=== PATIENT | female | born 1935 | race Native Hawaiian/Other Pacific Islander ===

== ENCOUNTER → 2019-10-28 | Outpatient (CLI) | payer MEDICARE ==
[2019-10-28 12:09] LABS: HGB 15.7 gm/dL (11.4-16.0); Hypochromasia Slight; MCH 30.6 pg (25.0-35.0); MCHC 32.8 g/dL (31.0-37.0); MCV 93.5 fL (80.0-100.0); Mean Platelet Volume 9.1; Platelet Count 192 k/uL (150-450); RBC 5.13 m/uL (3.80-5.40); RDW 12.6 % (11.5-15.5); WBC 6.2 k/uL (3.8-10.6)
[2019-10-28 12:14] LABS: African American GFR (CKD) >90 (>60 ml/min/1.73 sqM); Anion Gap 10 mmol/L; Blood Urea Nitrogen 19 mg/dL (7-17); Carbon Dioxide 24 mmol/L (22-30); Chloride 106 mmol/L (98-107); Non-African American GFR(CKD) 79 (>60 ml/min/1.73 sqM); Potassium 4.6 mmol/L (3.5-5.1); Sodium 140 mmol/L (137-145)
== END | disposition home or self-care (01) ==
LOC: LABPAT 11:10
PROVIDERS: ATTEND Internal Medicine Interventional Cardiology
DX: Z01.818 Encounter for other preprocedural examination (principal); I20.9 Angina pectoris, unspecified
CPT/HCPCS: 36415; 80051; 82565; 84520; 85027

== ENCOUNTER 2019-11-04 06:32 | Day surgery (SDC) | payer MEDICARE ==
[2019-11-03 09:12] VITALS: BMI 29.5
[~2019-11-04 06:32] MED LIST: ALPRAZolam 0.25 MG TAB PO PRN; ALPRAZolam 0.5 MG TAB PO PRN; ASPIRIN 325 MG TAB PO STA; ATORVASTATIN 80 MG TAB PO STA; NITROGLYCERIN SL TABS 0.4 MG TAB SUBLINGUAL PRN; SODIUM CHLORIDE 0.9% 1,000 ML in EMPTY BAG 1 BAG IV ONE
[2019-11-04 07:09] VITALS: RESP 16; TEMP 97.7
[2019-11-04] MEDS ORDERED: SODIUM CHLORIDE 0.9% 1,000 ML IV ONE (07:12)
[2019-11-04 07:16] LABS: Basophils % (A) 1 %; Eosinophils # (A) 0.2 k/uL (0-0.7); Eosinophils % (A) 4 %; HCT 48.7 % (34.0-46.0); HGB 15.6 gm/dL (11.4-16.0); Lymphocytes # (A) 1.3 k/uL (1.0-4.8); Lymphocytes % (A) 24 %; MCH 29.3 pg (25.0-35.0); MCHC 32.1 g/dL (31.0-37.0); MCV 91.4 fL (80.0-100.0); Mean Platelet Volume 8.6; Monocytes # (A) 0.3 k/uL (0-1.0); Monocytes % (A) 6 %; Neutrophils # (A) 3.4 k/uL (1.3-7.7); Neutrophils % (A) 64 %; Platelet Count 206 k/uL (150-450); RBC 5.33 m/uL (3.80-5.40); RDW 12.7 % (11.5-15.5); WBC 5.4 k/uL (3.8-10.6)
[2019-11-04] MEDS ORDERED: fentaNYL (PF) 50 MCG/ML 2 ML AMP ONE (07:22)
[2019-11-04] MEDS ORDERED: LIDOCAINE 1% INJ 10MG/ML (20 ML MDV) ONE (07:22)
[2019-11-04] MEDS ORDERED: VERAPAMIL 2.5 MG/ML 2 ML AMP ONE (07:22)
[2019-11-04] MEDS ORDERED: HEPARIN SODIUM 1,000 UN/ML (10ML VL) ONE (07:22)
[2019-11-04 07:23] LABS: Calcium 9.9 mg/dL (8.4-10.2); Potassium 4.2 mmol/L (3.5-5.1)
[2019-11-04] MEDS ORDERED: fentaNYL (PF) 50 MCG/ML 2 ML AMP IV ONE (07:35)
[2019-11-04] MEDS ORDERED: VERAPAMIL SYRINGE (5 MG/10 ML) INTRAARTER ONE (07:42)
[2019-11-04] MEDS ORDERED: IOPAMIDOL-370 100ML BTL INJ ONE (07:50)
[2019-11-04] MEDS ORDERED: RX INFO: IV CONTRAST WAS GIVEN 1 EACH MISC MISCELLANE PRN (08:04)
[2019-11-04] MEDS ORDERED: SODIUM CHLORIDE 0.9% 1,000 ML IV SCH (08:15)
--- NOTE | 2019-11-04 13:37 | CC ---
CARDIAC CATHETERIZATION REPORT Mrs. Waite is an 84-year-old female with a history of hypertension, hyperlipidemia, who has been complaining of progressive symptoms of dyspnea on exertion as well as chest discomfort. She underwent a myocardial perfusion imaging in July that showed evidence of inducible ischemia. She was treated medically, but has persisted in having progressive symptoms. In view of that, recommendation made regarding cardiac catheterization. The procedures, risks, and complications were discussed with the patient who is unremarkable full understanding and agreement. PROCEDURE DETAILS: Patient was brought to [facility] in a fasting state after receiving fentanyl and Benadryl and achieving moderate conscious sedated state. Using Xylocaine anesthesia Seldinger technique, a 6-Tamazight sheath was introduced in the right radial artery. Selective right and left coronary angiography performed using 5-Tamazight 3 and half bend right and left Surendra catheter. Multiple views of the coronary artery including hemiaxial views obtained, the right Surendra catheter was used to cross the aortic valve and left ventricular end-diastolic pressure was calculated. Following that, catheter and sheath were removed. Hemostasis was obtained with deployment of a TR band. There was no immediate complication. Patient was returned to her room in stable condition. Of note, the patient received 4500 units of intravenous heparin as well as intra- arterial verapamil. FINDINGS: FLUOROSCOPY: There was calcification involving the left anterior descending artery as well as the right coronary artery. LEFT MAIN: This is a large-sized vessel bifurcating into left circumflex, left anterior descending coronary artery. Left main coronary artery has no evidence of high- grade stenosis. LEFT ANTERIOR DESCENDING ARTERY: This is a large-sized vessel, tapers down distal third, giving rise to 2 diagonal branches. The first one is large in caliber. Prior to the takeoff of the first diagonal branch, there is a 10% to 20% plaque. There is another plaque of 20% to 30% following the diagonal branch takeoff. The rest of the vessel has no evidence of high-grade stenosis. LEFT CIRCUMFLEX: This is a nondominant moderately-sized vessel giving rise to 2 obtuse marginal branches. The left circumflex as well as branches have no evidence of obstructive coronary artery disease. RIGHT CORONARY ARTERY: This is a large dominant vessel, calcified, bifurcating distally into PDA and posterolateral segment and branches. The right coronary artery in the proximal segment has a 10-20% plaque without any evidence of high-grade stenosis. LEFT VENTRICULOGRAM: Left ventriculogram was not performed. HEMODYNAMICS: There was no gradient across the aortic valve. The left ventricular end-diastolic pressure was 10-12 mmHg. CONCLUSION: 1. Chronic calcified coronary arteries. 2. 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 RECOMMENDATION: In view of findings and anatomy, I recommend continue medical therapy with aggressive coronary risk modifications that have been initiated. Those findings and recommendation were discussed with the patient and her family and they are in full understanding and agreement. Duration of procedure is 13 minutes. MMBASILIOL / IJN: [id number] /
[2019-11-04 18:26] VITALS: BP 142/60; PULSE 62
[2019-11-04] MEDS ORDERED: NON FORMULARY DRUG (Lovastatin 40 MG) PO SCH (21:00)
[2019-11-04] MEDS ORDERED: NON FORMULARY DRUG (Vit C/E/Zn/Coppr/Lutein/Zeaxan [Preservision Areds 2 Softgel] 1 EACH) PO SCH (21:00)
[2019-11-04] MEDS ORDERED: VERAPAMIL SR 180 MG TABLET.ER PO SCH (21:00)
[2019-11-05] MEDS ORDERED: FLAXSEED OIL 1000 MG PO SCH (09:00)
[2019-11-05] MEDS ORDERED: MULTIVITAMINS, THERA 1 EACH TAB PO SCH (09:00)
[2019-11-05] MEDS ORDERED: ASPIRIN 81 MG PO SCH (09:00)
[2019-11-05] MEDS ORDERED: CALCIUM CARBONATE PO SCH (09:00)
[2019-11-05] MEDS ORDERED: [UNRECOGNIZED DRUG - OTHER] PO SCH (09:00)
[2019-11-05] MEDS ORDERED: VITAMIN D3 PO SCH (09:00)
[2019-11-05] MEDS ORDERED: LOSARTAN 25 MG TAB PO SCH (09:00)
[2019-11-05] MEDS ORDERED: ISOSORBIDE MONONITRATE ER 30 MG TAB.ER.24H PO SCH (09:00)
== END 2019-11-04 13:20 | disposition home or self-care (01) ==
LOC: CATHCVL 06:32
PROVIDERS: ATTEND Internal Medicine Interventional Cardiology
DX: I25.10 Atherosclerotic heart disease of native coronary artery without angina pectoris (principal); I25.84 Coronary atherosclerosis due to calcified coronary lesion; I10 Essential (primary) hypertension; Z87.891 Personal history of nicotine dependence; E78.00 Pure hypercholesterolemia, unspecified; E78.2 Mixed hyperlipidemia; K21.9 Gastro-esophageal reflux disease without esophagitis; Z82.49 Family history of ischemic heart disease and other diseases of the circulatory system; Z90.710 Acquired absence of both cervix and uterus; Z98.49 Cataract extraction status, unspecified eye; Z90.49 Acquired absence of other specified parts of digestive tract; Z96.659 Presence of unspecified artificial knee joint; Z79.82 Long term (current) use of aspirin; Z79.899 Other long term (current) drug therapy; Z88.1 Allergy status to other antibiotic agents; Z88.5 Allergy status to narcotic agent; Z88.0 Allergy status to penicillin
CPT/HCPCS: 93458; 80048; 85025; C1769; C1894; J3010; J1644; Q9967

== ENCOUNTER 2020-08-01 16:02 | Inpatient (IN) | payer MEDICARE ==
[2020-08-01] MEDS ORDERED: NALOXONE 0.4 MG/ML 1 ML VIAL IV PRN (18:00)
--- NOTE | 2020-08-01 18:00 | ED ---
Weakness HPI - General Chief complaint: Weakness Stated complaint: Covid Time Seen by Provider: 08/01/20 16:10 Source: EMS Mode of arrival: EMS Limitations: no limitations - History of Present Illness Initial comments: Patient is an 78-year-old female who presented to [facility] for generalized weakness, nausea, vomiting, cough for the past 7 days. She did have contact with known Covid patient 11 days ago. She was evaluated at their facility and it was found that the patient was hypoxic without oxygen supplementation. She desatted down to 86% with ambulation. Maintained a room sat of 90% when not ambulating and 92% on 2 L. [facility] could not accommodate the patient therefore recommended that she be transferred to our facility. She was given a dose of Decadron before transfer. She denies any nausea or vomiting. No chest pain. Denies any abdominal pain. No other alleviating, Percepting or modifying factors - Related Data Home Medications Medication Instructions Recorded Confirmed Aspirin 81 mg PO DAILY 11/03/19 08/01/20 Calcium Carbonate/Vitamin D3 1 tab PO DAILY 11/03/19 08/01/20 [Calcium 600-D3 20Mcg(800 Unit)] Flaxseed Oil 1,000 mg PO DAILY 11/03/19 08/01/20 Isosorbide Mononitrate [Isosorbide 30 mg PO DAILY 11/03/19 08/01/20 Mononitrate ER] Losartan Potassium [Cozaar] 25 mg PO BID 11/03/19 08/01/20 Lovastatin [Mevacor] 40 mg PO W/SUPPER 11/03/19 08/01/20 Multivitamins, Thera [Multivitamin 1 tab PO DAILY 11/03/19 08/01/20 (formulary)] Verapamil HCl [Verapamil ER] 180 mg PO BID 11/03/19 08/01/20 Vit C/E/Zn/Coppr/Lutein/Zeaxan 1 cap PO BID 11/03/19 08/01/20 [Preservision Areds 2 Softgel] Allergies Allergy/AdvReac Type Severity Reaction Status Date / Time atenolol Allergy Unknown Verified 08/01/20 18:16 codeine Allergy Unknown Verified 08/01/20 18:16 morphine Allergy PANIC Verified 08/01/20 18:16 ATTACKS Penicillins Allergy Rash/Hives Verified 08/01/20 18:16 Review of Systems ROS Statement: Those systems with pertinent positive or pertinent negative responses have been documented in the HPI. ROS Other: All systems not noted in ROS Statement are negative. Past Medical History Past Medical History: Cancer, Chest Pain / Angina, GERD/Reflux, Hyperlipidemia, Hypertension, Osteoarthritis (OA) Additional Past Medical History / Comment(s): RAPID HEART BEAT, HEPATITIS A 1990, MELENOMA CANCER History of Any Multi-Drug Resistant Organisms: None Reported Past Surgical History: Cholecystectomy, Hysterectomy, Joint Replacement, Tonsillectomy Additional Past Surgical History / Comment(s): TOTAL RIGHT KNEE, TOTAL LEFT KNEE, EGD, cataracts bilateral, Past Anesthesia/Blood Transfusion Reactions: Postoperative Nausea & Vomiting (PONV) Additional Past Anesthesia/Blood Transfusion Reaction / Comment(s): DECREASED RESPIRATIONS WITH TOTAL KNEE, "TAKES LONGER TO WAKE UP" Past Psychological History: No Psychological Hx Reported Smoking Status: Never smoker Past Alcohol Use History: None Reported Past Drug Use History: None Reported - Past Family History Mother Family Medical History: Cancer Additional Family Medical History / Comment(s): BONE CANCER Daughter(s) Family Medical History: Cancer Additional Family Medical History / Comment(s): BILE DUCT CANCER Father Family Medical History: Myocardial Infarction (NC) Additional Family Medical History / Comment(s): Father of a NC at the age of 69yrs. General Exam Limitations: no limitations General appearance: alert, in no apparent distress Head exam: Present: atraumatic, normocephalic, normal inspection Eye exam: Present: normal appearance, PERRL, EOMI. Absent: scleral icterus, conjunctival injection, periorbital swelling ENT exam: Present: normal exam, mucous membranes moist Neck exam: Present: normal inspection. Absent: tenderness, meningismus, lymphadenopathy Respiratory exam: Present: normal lung sounds bilaterally. Absent: respiratory distress, wheezes, rales, rhonchi, stridor Cardiovascular Exam: Present: regular rate, normal rhythm, normal heart sounds. Absent: systolic murmur, diastolic murmur, rubs, gallop, clicks GI/Abdominal exam: Present: soft, normal bowel sounds. Absent: distended, tenderness, guarding, rebound, rigid Extremities exam: Present: normal inspection, full ROM, normal capillary refill. Absent: tenderness, pedal edema, joint swelling, calf tenderness Back exam: Present: normal inspection Neurological exam: Present: alert, oriented X3, CN II-XII intact Psychiatric exam: Present: normal affect, normal mood Skin exam: Present: warm, dry, intact, normal color. Absent: rash Course Vital Signs 08/01/20 08/01/20 08/01/20 16:09 16:39 18:55 Temperature 98.9 F Pulse Rate 70 72 Pulse Rate [ Pulse Oximetery ] Respiratory 18 20 19 Rate Blood Pressure 117/49 103/54 Blood Pressure [Left Arm] O2 Sat by Pulse 96 94 L Oximetry 08/01/20 08/02/20 08/02/20 23:02 04:07 08:50 Temperature 97.8 F 97.3 F L Pulse Rate 66 80 Pulse Rate [ 68 Pulse Oximetery ] Respiratory 18 18 16 Rate Blood Pressure 127/69 100/72 Blood Pressure 113/54 [Left Arm] O2 Sat by Pulse 94 L 95 92 L Oximetry Medical Decision Making - Medical Decision Making Upon arrival patient was placed into room 18. A thorough history and physical exam was performed. I did review the patient's packet from outside facility. I do attempt to ambulate the patient myself to verify that the patient is hypoxic. She does drop to 87% upon ambulation. I did discuss treatment with BAM to the patient. Patient states she feels too weak and short of breath to go home. Due to her hypoxia I did continue albuterol treatments and steroids. I spoke with Dr. Burton who agreed to admit the patient. Pulmonary placed on consult however I spoke with Dr. Askew who requested to be taken off of consult. Patient re mained with O2 sats of 92% on 2L while awaiting a bed - Lab Data Result diagrams: 08/02/20 05:22 08/02/20 05:22 Disposition Clinical Impression: COVID-19, Hypoxia Disposition: ADMITTED IP TO THIS HOSP Condition: Stable Is patient prescribed a controlled substance at d/c from ED?: No Decision to Admit Reason: Admit from EC Decision Date: 08/01/20 Decision Time: 18:00
[2020-08-01] MEDS ORDERED: POTASSIUM CHLORIDE ER 20 MEQ TAB.ER PO STA (20:57)
--- NOTE | 2020-08-01 20:58 | P.HPIM ---
History of Present Illness H&P Date: 08/01/20 Patient is an 85-year-old female with a PMH of hypertension and hyperlipidemia who initially presented [facility] earlier today with complaints of lethargy, shortness of breath, nonproductive cough, nausea, and vomiting. The patient was recently informed that she had a COVID exposure 10 days ago. She tested positive for COVID at [facility] and was noted to have hypoxia upon ambulation with an SpO2 of 86%. She was subsequently transferred for further management. Patient reports that she lives with her son at home but has been feeling under the weather for the past week. Notes that she has been sleeping for the majority of the days. She denied chest pain, headaches, dizziness, diarrhea, fever, or chills. At [facility], laboratory evaluation revealed WBC count 4.8, hemoglobin 13.2, platelets 134, sodium 137, potassium 3.4, chloride 105, CO2 27, BUN 15, creatinine 0.6, glucose 128, AST 33, ALT 21, alk phos 54, lactic acid 1.8, magnesium 1.7, phosphorus 2.7, troponin 0.014, influenza negative, and EKG with sinus rhythm at 75 bpm. Review of Systems Pertinent positives and negatives as discussed in HPI, a complete review of systems was performed and all other systems are negative. Past Medical History Past Medical History: Cancer, Chest Pain / Angina, GERD/Reflux, Hyperlipidemia, Hypertension, Osteoarthritis (OA) Additional Past Medical History / Comment(s): RAPID HEART BEAT, HEPATITIS A 1989, MELENOMA CANCER History of Any Multi-Drug Resistant Organisms: None Reported Past Surgical History: Cholecystectomy, Hysterectomy, Joint Replacement, Tonsillectomy Additional Past Surgical History / Comment(s): TOTAL RIGHT KNEE, TOTAL LEFT KNEE, EGD, cataracts bilateral, Past Anesthesia/Blood Transfusion Reactions: Postoperative Nausea & Vomiting (PONV) Additional Past Anesthesia/Blood Transfusion Reaction / Comment(s): DECREASED RESPIRATIONS WITH TOTAL KNEE, "TAKES LONGER TO WAKE UP" Past Psychological History: No Psychological Hx Reported Smoking Status: Never smoker Past Alcohol Use History: None Reported Past Drug Use History: None Reported - Past Family History Mother Family Medical History: Cancer Additional Family Medical History / Comment(s): BONE CANCER Daughter(s) Family Medical History: Cancer Additional Family Medical History / Comment(s): BILE DUCT CANCER Medications and Allergies Home Medications Medication Instructions Recorded Confirmed Type Aspirin 81 mg PO DAILY 11/03/19 08/01/20 History Calcium Carbonate/Vitamin D3 1 tab PO DAILY 11/03/19 08/01/20 History [Calcium 600-D3 20Mcg(800 Unit)] Flaxseed Oil 1,000 mg PO DAILY 11/03/19 08/01/20 History Isosorbide Mononitrate [Isosorbide 30 mg PO DAILY 11/03/19 08/01/20 History Mononitrate ER] Losartan Potassium [Cozaar] 25 mg PO BID 11/03/19 08/01/20 History Lovastatin [Mevacor] 40 mg PO W/SUPPER 11/03/19 08/01/20 History Multivitamins, Thera [Multivitamin 1 tab PO DAILY 11/03/19 08/01/20 History (formulary)] Verapamil HCl [Verapamil ER] 180 mg PO BID 11/03/19 08/01/20 History Vit C/E/Zn/Coppr/Lutein/Zeaxan 1 cap PO BID 11/03/19 08/01/20 History [Preservision Areds 2 Softgel] Allergies Allergy/AdvReac Type Severity Reaction Status Date / Time atenolol Allergy Unknown Verified 08/01/20 18:16 codeine Allergy Unknown Verified 08/01/20 18:16 morphine Allergy PANIC Verified 08/01/20 18:16 ATTACKS Penicillins Allergy Rash/Hives Verified 08/01/20 18:16 Physical Exam Vitals: Vital Signs Temp Pulse Resp BP Pulse Ox 08/01/20 18:55 72 19 103/54 94 L 08/01/20 16:39 20 08/01/20 16:09 98.9 F 70 18 117/49 96 Intake and Output 08/01/20 08/01/20 08/01/20 06:59 14:59 22:59 Other: Weight 81.647 kg General: non toxic, no distress, appears at stated age, overweight Derm: no unusual rashes/lesions no unusual ecchymoses, warm, dry Head: atraumatic, normocephalic, symmetric Eyes: EOMI, no lid lag, anicteric sclera, pupils equal round reactive to light ENT: Nose and ears atraumatic, no thrush, no pharyngeal erythema Neck: No thyromegaly, no cervical lymphadenopathy, trachea midline, supple Mouth: no lip lesion, mucus membranes moist Cardiovascular: S1S2 reg, no murmur, positive posterior tibial pulse bilateral, no edema, capillary refill less than 2 seconds Lungs: Some bilateral rhonchi, no rales or wheezing appreciated, no accessory muscle use Abdominal: soft, nontender to palpation, no guarding, no appreciable organomegaly, normal bowel sounds Ext: no gross muscle atrophy, muscle strength 5 out of 5 in all 4 extremities grossly, no contractures, Neuro: CN II-XI grossly intact, light touch intact all 4 extremities, finger to nose within normal limits, Psych: Alert, oriented, appropriate affect Assessment and Plan Plan: COVID-19 Pneumonitis -C/w Decadron -Zinc, Vit C, Vit D, Melatonin -Supplemental oxygen Hypokalemia -Replace and monitor Thrombocytopenia -Possibly due to on-going infection -Monitor for now Chronic conditions: HTN, HLD -Hold oral antihypertensives in setting of borderline BP DVT prophylaxis -Lovenox subq The patient is admitted with an anticipated greater than 2 midnight stay for evaluation of COVID CODE STATUS: No Code (she reports that she has previously filled out paperwork outlining that she does not wish to undergo resuscitation or be placed on life support for any reason. Discussed with the patient the possibility of worsening COVID pneumonitis to which the patient noted that she does not wish to be placed on a ventilator and should be allowed to pass peacefully without life support) Discussed with: Patient Anticipated discharge date: 2-[address]: home A total of 35 minutes was spent on the care of this complex patient more than 50% of the time was spent in counseling and care coordination.
--- NOTE | 2020-08-01 21:20 | XR ---
EXAMINATION TYPE: XR chest 1V portable DATE OF EXAM: 08/01/2020 COMPARISON: Earlier same day. HISTORY: Shortness of breath. TECHNIQUE: Single frontal view of the chest is obtained. FINDINGS: There is persistent mild perihilar and bibasilar hazy opacities. No pleural effusion, or p neumothorax seen. The cardiac silhouette size is within normal limits. The osseous structures are intact. IMPRESSION: Persistent mild atelectasis versus infiltrates.
[2020-08-01] MEDS: LOSARTAN 25 MG TAB PO SCH (22:54)
[2020-08-01] MEDS: MELATONIN 5 MG TABLET PO SCH (22:54)
[2020-08-01] MEDS: VERAPAMIL SR 180 MG TABLET.ER PO SCH (22:55)
[2020-08-02] MEDS: ALBUTEROL HFA INHALER INHALATION PRN ×3 (07:33→15:53)
[2020-08-02 08:48] LABS: Basophils # (A) 0 X 10*3/uL (0.00-0.10); Basophils % (A) 0 %; Eosinophils # (A) 0 X 10*3/uL (0.04-0.35); Eosinophils % (A) 0 %; HCT 39.7 % (37.2-46.3); HGB 12.3 g/dL (12.0-15.0); Lymphocytes # (A) 0.56 X 10*3/uL (0.90-5.00); Lymphocytes % (A) 15.7 %; MCH 28.5 pg (27.0-32.0); MCV 91.9 fL (80.0-97.0); Mean Platelet Volume 12.5 fL (9.5-12.2); Monocytes # (A) 0.24 X 10*3/uL (0.20-1.00); Monocytes % (A) 6.7 %; Neutrophils # (A) 2.75 X 10*3/uL (1.80-7.70); Neutrophils % (A) 77.3 %; Platelet Count 156 X 10*3/uL (140-440); RBC 4.32 X 10*6/uL (4.10-5.20); RDW 13.1 % (11.5-14.5); WBC 3.56 X 10*3/uL (4.50-10.00)
[2020-08-02 09:52] LABS: African American GFR (CKD) 76.8 (60.0-200.0); Anion Gap 6.2 mmol/L (4.00-12.00); BUN/Creat Ratio 31.25 Ratio (12.00-20.00); Calcium 8.4 mg/dL (8.7-10.3); Carbon Dioxide 24.8 mmol/L (21.6-31.8); Non-African American GFR(CKD) 66.3 (60.0-200.0); Potassium 5.3 mmol/L (3.5-5.5)
[2020-08-02] MEDS: ASCORBIC ACID 500 MG TAB PO SCH (09:54)
[2020-08-02] MEDS: ENOXAPARIN 40 MG/0.4 ML SYRINGE SQ SCH (09:54)
[2020-08-02] MEDS: VERAPAMIL SR 180 MG TABLET.ER PO SCH (09:54)
[2020-08-02] MEDS: DEXAMETHASONE SOD PHOSPHATE 10 MG/ML 1 ML VIAL IV SCH (09:54)
[2020-08-02] MEDS: CHOLECALCIFEROL 25 MCG (1000 IU) TABLET PO SCH (09:54)
[2020-08-02] MEDS: LOSARTAN 25 MG TAB PO SCH (09:55)
[2020-08-02] MEDS: ZINC SULFATE 220 MG CAP PO SCH (09:55)
--- NOTE | 2020-08-02 16:46 | P.PN ---
Subjective Progress Note Date: 08/02/20 Principal diagnosis: sob Patient is feeling better. Her breathing has improved. She is currently on 2 L of nasal cannula. No complaints currently. Objective - Vital Signs Vital signs: Vital Signs Temp 97.1 F L 08/02/20 16:24 Pulse 71 08/02/20 16:24 Resp 16 08/02/20 16:24 BP 111/54 08/02/20 16:24 Pulse Ox 94 L 08/02/20 16:24 Intake & Output 08/01/20 08/02/20 08/02/20 18:59 06:59 18:59 Weight 81.647 kg 81.647 kg - Exam General: non toxic, no distress, appears at stated age, overweight Derm: no unusual rashes/lesions no unusual ecchymoses, warm, dry Head: atraumatic, normocephalic, symmetric Eyes: EOMI, no lid lag, anicteric sclera, pupils equal round reactive to light ENT: Nose and ears atraumatic, no thrush, no pharyngeal erythema Neck: No thyromegaly, no cervical lymphadenopathy, trachea midline, supple Mouth: no lip lesion, mucus membranes moist Cardiovascular: S1S2 reg, no murmur, positive posterior tibial pulse bilateral, no edema, capillary refill less than 2 seconds Lungs: Some bilateral rhonchi, no rales or wheezing appreciated, no accessory muscle use Abdominal: soft, nontender to palpation, no guarding, no appreciable organomegaly, normal bowel sounds Ext: no gross muscle atrophy, muscle strength 5 out of 5 in all 4 extremities grossly, no contractures, Neuro: CN II-XI grossly intact, light touch intact all 4 extremities, finger to nose within normal limits, Psych: Alert, oriented, appropriate affect - Labs CBC & Chem 7: 08/02/20 05:22 08/02/20 05:22 Labs: Abnormal Lab Results - Last 24 Hours (Table) 08/01/20 08/02/20 08/02/20 Range/Units 21:04 05:22 05:22 WBC 3.56 L (4.50-10.00) X 10*3/uL MCHC 31.0 L (32.0-37.0) g/dL MPV 12.5 H (9.5-12.2) fL Lymphocytes # 0.56 L (0.90-5.00) X 10*3/uL Eosinophils # 0 L (0.04-0.35) X 10*3/uL Sodium 134 L (135-145) mmol/L BUN/Creatinine Ratio 31.25 H (12.00-20.00) Ratio Glucose 172 H (70-110) mg/dL Calcium 8.4 L (8.7-10.3) mg/dL Coronavirus (PCR) Detected A (Not Detectd) Assessment and Plan Plan: COVID-19 Pneumonitis -C/w Decadron -Zinc, Vit C, Vit D, Melatonin -Supplemental oxygen -Pulmonary evaluation Hypokalemia -Replace and monitor Thrombocytopenia -Possibly due to on-going infection -Monitor for now Chronic conditions: HTN, HLD -Hold oral antihypertensives in setting of borderline BP DVT prophylaxis -Lovenox subq Anticipated discharge date: 2-[address]: home A total of 35 minutes was spent on the care of this complex patient more than 50% of the time was spent in counseling and care coordination.
[2020-08-02] MEDS ORDERED: ATORVASTATIN 10 MG TAB PO SCH (17:30)
[2020-08-02] MEDS ORDERED: VERAPAMIL SR 180 MG TABLET.ER PO SCH (21:00)
[2020-08-02] MEDS ORDERED: LOSARTAN 25 MG TAB PO SCH (21:00)
[2020-08-02] MEDS: MELATONIN 5 MG TABLET PO SCH (21:16)
[2020-08-03 07:13] LABS: Basophils % (A) 0 %; Eosinophils % (A) 0 %; HGB 13.1 gm/dL (11.4-16.0); Lymphocytes # (A) 0.7 k/uL (1.0-4.8); Lymphocytes % (A) 5 %; MCH 29.9 pg (25.0-35.0); MCHC 33.6 g/dL (31.0-37.0); MCV 89.2 fL (80.0-100.0); Mean Platelet Volume 9.4; Monocytes # (A) 0.5 k/uL (0-1.0); Monocytes % (A) 4 %; Neutrophils # (A) 12.2 k/uL (1.3-7.7); Neutrophils % (A) 91 %; Platelet Count 184 k/uL (150-450); RBC 4.37 m/uL (3.80-5.40); RDW 12.7 % (11.5-15.5); WBC 13.4 k/uL (3.8-10.6)
[2020-08-03 07:37] LABS: ALT 22 U/L (4-34); AST 36 U/L (14-36); African American GFR (CKD) >90 (>60 ml/min/1.73 sqM); Alkaline Phosphatase 62 U/L (38-126); Anion Gap 7 mmol/L; Blood Urea Nitrogen 27 mg/dL (7-17); Calcium 8.4 mg/dL (8.4-10.2); Carbon Dioxide 24 mmol/L (22-30); Chloride 107 mmol/L (98-107); Glucose 120 mg/dL (74-99); Magnesium 2.1 mg/dL (1.6-2.3); Non-African American GFR(CKD) 81 (>60 ml/min/1.73 sqM); Phosphorus 3.7 mg/dL (2.5-4.5); Sodium 138 mmol/L (137-145); Total Bilirubin 0.3 mg/dL (0.2-1.3); Total Protein 5.8 g/dL (6.3-8.2)
[2020-08-03 08:15] VITALS: BP 118/65; PULSE 63; RESP 18; TEMP 97.4
[2020-08-03] MEDS: DEXAMETHASONE SOD PHOSPHATE 10 MG/ML 1 ML VIAL IV SCH (08:37)
[2020-08-03] MEDS: ENOXAPARIN 40 MG/0.4 ML SYRINGE SQ SCH (08:37)
[2020-08-03] MEDS: ZINC SULFATE 220 MG CAP PO SCH (08:38)
[2020-08-03] MEDS: CHOLECALCIFEROL 25 MCG (1000 IU) TABLET PO SCH (08:38)
[2020-08-03] MEDS: ASCORBIC ACID 500 MG TAB PO SCH (08:38)
[2020-08-03] MEDS: ALBUTEROL HFA INHALER INHALATION PRN ×3 (08:48→16:01)
[2020-08-03] MEDS ORDERED: ISOSORBIDE MONONITRATE ER 30 MG TAB.ER.24H PO SCH (09:00)
[2020-08-03] MEDS ORDERED: ASPIRIN 81 MG PO SCH (09:00)
[2020-08-03 13:04] VITALS: BMI 31.8
--- NOTE | 2020-08-03 13:46 | P.DS ---
Providers Date of admission: 08/01/20 18:00 Expected date of discharge: 08/03/20 Attending physician: Federico Burton MD Primary care physician: Stated None Hospital Course: 85-year-old female with a PMH of hypertension and hyperlipidemia who initially presented [facility] earlier today with complaints of lethargy, shortness of breath, nonproductive cough, nausea, and vomiting. The patient was recently informed that she had a COVID exposure 10 days ago. She tested positive for COVID at [facility] and was noted to have hypoxia upon ambulation with an SpO2 of 86%. She was subsequently transferred for further management. Patient has been sleeping for the majority of the days. She denied chest pain, headaches, dizziness, diarrhea, fever, or chills. At [facility], laboratory evaluation revealed WBC count 4.8, hemoglobin 13.2, platelets 134, sodium 137, potassium 3.4, chloride 105, CO2 27, BUN 15, creatinine 0.6, glucose 128, AST 33, ALT 21, alk phos 54, lactic acid 1.8, magnesium 1.7, phosphorus 2.7, troponin 0.014, influenza negative, and EKG with sinus rhythm at 75 bpm. Chest x-ray in the emergency department showed mild perihilar and bibasilar opacities consistent with atelectasis versus infiltrates. Patient was admitted for further medical management. She was started on Decadron for treatment of Covid pneumonia. She did not qualify for remdisivir treatment due to symptoms starting more than 7 days ago. During the hospitalization she only required one to 2 L of oxygen per nasal cannula. Upon repeated evaluations during the hospitalization patient was essentially asymptomatic with no shortness of breath at rest but she does have slight labored breathing with ambulation. Oxygen saturations were tested today with ambulation, saturations dropped to 84% on room air. She will need 2 L of oxygen to go home with. This will be arranged. She will be discharged home in a stable condition. Discharge diagnoses COVID pneumonia Acute hypoxic respiratory failure sec to above Patient Condition at Discharge: Stable Plan - Discharge Summary Discharge Rx Participant: No New Discharge Prescriptions: New Dexamethasone [Decadron] 4 mg PO DAILY 7 Days #7 tablet Albuterol Inhaler [Ventolin Hfa Inhaler] 2 puff INHALATION RT-QID PRN 30 Days #1 inhaler PRN Reason: Shortness Of Breath Or Wheezing Continue Aspirin 81 mg PO DAILY Flaxseed Oil 1,000 mg PO DAILY Vit C/E/Zn/Coppr/Lutein/Zeaxan [Preservision Areds 2 Softgel] 1 cap PO BID Calcium Carbonate/Vitamin D3 [Calcium 600-D3 20 mcg (800 Unit)] 1 tab PO DAILY Verapamil HCl [Verapamil ER] 180 mg PO BID Multivitamins, Thera [Multivitamin (formulary)] 1 tab PO DAILY Lovastatin [Mevacor] 40 mg PO W/SUPPER Losartan Potassium [Cozaar] 25 mg PO BID Isosorbide Mononitrate [Isosorbide Mononitrate ER] 30 mg PO DAILY Discharge Medication List Aspirin 81 mg PO DAILY 11/03/19 [History] Calcium Carbonate/Vitamin D3 [Calcium 600-D3 20 mcg (800 Unit)] 1 tab PO DAILY 11/03/19 [History] Flaxseed Oil 1,000 mg PO DAILY 11/03/19 [History] Isosorbide Mononitrate [Isosorbide Mononitrate ER] 30 mg PO DAILY 11/03/19 [History] Losartan Potassium [Cozaar] 25 mg PO BID 11/03/19 [History] Lovastatin [Mevacor] 40 mg PO W/SUPPER 11/03/19 [History] Multivitamins, Thera [Multivitamin (formulary)] 1 tab PO DAILY 11/03/19 [History] Verapamil HCl [Verapamil ER] 180 mg PO BID 11/03/19 [History] Vit C/E/Zn/Coppr/Lutein/Zeaxan [Preservision Areds 2 Softgel] 1 cap PO BID 11/03/19 [History] Albuterol Inhaler [Ventolin Hfa Inhaler] 2 puff INHALATION RT-QID PRN 30 Days #1 inhaler 08/03/20 [Rx] Dexamethasone [Decadron] 4 mg PO DAILY 7 Days #7 tablet 08/03/20 [Rx] Follow up Appointment(s)/Referral(s): None,Stated [Primary Care Provider] - 1-2 days
== END 2020-08-03 16:30 | disposition home or self-care (01) | DRG 177 ==
LOC: EC 16:02 → 4SSUR 18:00 → 1SOBS 08-02 15:49
PROVIDERS: ADMIT Internal Medicine; ATTEND Internal Medicine
DX: U07.1 COVID-19 (principal); J12.82 Pneumonia due to coronavirus disease 2019; J96.01 Acute respiratory failure with hypoxia; Z20.822 Contact with and (suspected) exposure to COVID-19; Z79.82 Long term (current) use of aspirin; I10 Essential (primary) hypertension; Z80.0 Family history of malignant neoplasm of digestive organs; Z82.49 Family history of ischemic heart disease and other diseases of the circulatory system; E78.5 Hyperlipidemia, unspecified; E87.6 Hypokalemia; D69.6 Thrombocytopenia, unspecified; Z90.710 Acquired absence of both cervix and uterus
CPT/HCPCS: 71045; 80048; 80053; 83735; 84100; 85025; 87635; 94640; 94760; 96372; 96374; 96376; 99285